=== PATIENT | female | born 1990 | race Caucasian/White ===

== ENCOUNTER 2023-08-21 10:25 | Emergency (ER) | payer BC, SELFPAY ==
[2023-08-21] VITALS (11 sets, daily range): BP systolic 127; BP diastolic 76; PULSE 53–74; TEMP 36.9; O2SAT 100; BMI 21.9
--- NOTE | 2023-08-21 10:59 | ECG_ITS ---
[facility] [place] Test Date: 2023-08-21 Pat Name: SANA THACKER Department: Room: - Gender: Female Rand Tacker: : 1990 Requested By: [id number] Order Number: [id number] Reading MD: KARIN LEMUS Measurements Intervals [place] Rate: 61 P: 71 [place]: 154 QRS: 93 QRSD: 72 T: 45 QT: 394 QTc: 397 Interpretive Statements 1100 Sinus rhythm 7102 Moderate right axis deviation 9110 normal ECG No previous ECG available for comparison Electronically Signed On 08-21-2023 23:20:34 EDT by KARIN LEMUS
--- NOTE | 2023-08-21 10:59 | ED_ITS ---
HPI - Anxiety General Chief Complaint: Anxiety Stated Complaint: ANXIETY Time Seen by Provider: 08/21/23 10:53 Source: patient Mode of arrival: walk-in Limitations: no limitations History of Present Illness HPI narrative: 32-year-old female presented for anxiety. She states she believes she was having a panic attack today. She felt like her heart was racing and she could not concentrate. She worked out for an hour but it did not help and when she went to work she could not concentrate and she started crying. She was brought here. She is not suicidal. She is believes she has had panic attacks in the past but never had them checked out and is not on medication for them. Related Data Previous Rx's ?Medication ?Instructions ?Recorded alprazolam 0.5 mg tablet (Xanax) 0.5 mg PO TID PRN anxiety 5 days 08/21/23 #14 tabs Allergies Allergy/AdvReac Type Severity Reaction Status Date / Time No Known Drug Allergies Allergy Verified 08/21/23 10:35 Review of Systems ROS Narrative A ten point review of systems is negative except as noted above. Exam Narrative Exam Narrative: Nurses note and vital signs reviewed and patient is not hypoxic. General: The patient appears well and in no apparent distress. Patient is resting comfortably on cart. Skin: Warm, dry, no pallor noted. There is no rash noted. Head: Normocephalic, atraumatic Eye: Normal conjunctiva, no drainage Ears, Nose, Mouth, and Throat: oral mucosa is moist. Nares patent. Cardiovascular: Regular Rate and Rhythm Respiratory: Patient is in no distress, no accessory muscle use, lungs are clear to auscultation, no wheezing, rales or rhonchi Back: non-tender GI: Soft and nontender Musculoskeletal: The patient has no evidence of calf tenderness, no pitting edema, symmetrical pulses noted bilaterally Neurological: A&O, normal speech Psychiatric: Cooperative Constitutional Vital Signs, click to edit/add: Last Vital Signs Temp 98.4 F 08/21/23 10:35 Pulse 55 L 08/21/23 12:00 Resp 18 08/21/23 12:00 BP 127/76 08/21/23 10:35 Pulse Ox 100 08/21/23 10:35 O2 Del Method Room Air 08/21/23 10:35 Course Vital Signs Vital signs: Vital Signs Temperature 98.4 F 08/21/23 10:35 Pulse Rate 64 08/21/23 10:35 Respiratory Rate 18 08/21/23 10:35 Blood Pressure 127/76 08/21/23 10:35 Pulse Oximetry 100 08/21/23 10:35 Oxygen Delivery Method Room Air 08/21/23 10:35 Temperature 98.4 F 08/21/23 10:35 Pulse Rate 55 L 08/21/23 12:00 Respiratory Rate 18 08/21/23 12:00 Blood Pressure 127/76 08/21/23 10:35 Pulse Oximetry 100 08/21/23 10:35 Oxygen Delivery Method Room Air 08/21/23 10:35 MDM - Anxiety MDM Narrative Medical decision making narrative: Her medical workup here is negative. She was given 0.5 mg of IV Ativan and feels improved and is able to be discharged home. She was provided a work note and a prescription for short course of Xanax. She was also given a list of PCPs with whom she can follow-up. Treatment diagnosis and follow-up were discussed with the patient and her . Differential Diagnosis Differential diagnosis: Likely panic disorder and acute anxiety Lab Data Attestation: I reviewed the patient's lab results. Labs: Lab Results 08/21/23 Range/Units 11:10 WBC 6.9 (4.0-11.0) 10^3/uL RBC 4.50 (4.20-5.40) 10^6/uL Hgb 12.6 (12.0-16.0) g/dL Hct 39.3 (36.0-48.0) % MCV 87.3 (81.0-99.0) fL MCH 28.0 (26.7-34.0) pg MCHC 32.1 (29.9-35.2) g/dL RDW 12.1 (11.0-15.0) % Plt Count 190 (150-450) 10^3/uL MPV 10.3 (9.5-13.5) fL Neut % (Auto) 68.1 (43.0-75.0) % Lymph % (Auto) 23.9 (20.5-60.0) % [place] % (Auto) 6.2 (1.7-12.0) % Eos % (Auto) 1.3 (0.9-7.0) % Baso % (Auto) 0.4 (0.2-2.0) % Neut # (Auto) 4.7 (1.4-6.5) 10^3/uL Lymph # (Auto) 1.7 (1.2-3.8) 10^3/uL [place] # (Auto) 0.4 (0.3-0.8) 10^3/uL Eos # (Auto) 0.1 (0.0-0.7) 10^3/uL Baso # (Auto) 0.0 (0.0-0.1) 10^3/uL Abs Immat Gran (auto) 0.01 (0.00-0.03) 10^3/uL Imm/Tot Granulo (auto) 0.1 (0.0-0.5) % Sodium 140 (136-145) mmol/L Potassium 4.0 (3.5-5.1) mmol/L Chloride 105 (98-107) mmol/L Carbon Dioxide 26.5 (21.0-32.0) mmol/L Anion Gap 12.5 BUN 16.0 (7.0-18.0) mg/dL Creatinine 0.85 (0.55-1.02) mg/dL Est GFR ( Amer) >60 (>=60) Est GFR (Non-Af Amer) >60 (>=60) BUN/Creatinine Ratio 18.8 Glucose 90 (74-106) mg/dL Calcium 9.2 (8.5-10.1) mg/dL Serum HCG, Qual Negative (NEGATIVE) ECG Data Attestation: I personally reviewed and interpreted this ECG as follows: (EKG on my interpretation shows normal sinus rhythm without acute change and rate of 61.) Discharge Plan Discharge Stand Alone Forms: Portal Instructions Chief Complaint: Anxiety Clinical Impression: Acute anxiety Patient Disposition: Home, Self-Care Time of Disposition Decision: 12:39 Condition: Good Mode of Transportation: Private Vehicle Prescriptions / Home Meds: New alprazolam [Xanax] 0.5 mg tablet 0.5 mg PO TID PRN (Reason: anxiety) 5 Days Qty: 14 0RF Print Language: Ukrainian Instructions: Panic Disorder (ED), Anxiety (ED) Additional Instructions: See attached a list of PCPs Referrals: Physician,Non-Staff, MD [Primary Care Provider] - 1 week
[2023-08-21] MEDS: LORAZEPAM 2 MG/ML VIAL 0.5 MG IV (11:19)
[2023-08-21 11:26] LABS: Basophils Percent Auto 0.4 % (0.2-2.0); Eosinophils Absolute Auto 0.1 10^3/uL (0.0-0.7); Eosinophils Percent Auto 1.3 % (0.9-7.0); Hematocrit 39.3 % (36.0-48.0); Hemoglobin 12.6 g/dL (12.0-16.0); Immature Granulocytes Abs Auto 0.01 10^3/uL (0.00-0.03); Immature Granulocytes Pct Auto 0.1 % (0.0-0.5); Lymphocytes Absolute Auto 1.7 10^3/uL (1.2-3.8); Lymphocytes Percent Auto 23.9 % (20.5-60.0); Mean Corpuscular HGB Conc 32.1 g/dL (29.9-35.2); Mean Corpuscular Volume 87.3 fL (81.0-99.0); Mean Platelet Volume 10.3 fL (9.5-13.5); Monocytes Absolute Auto 0.4 10^3/uL (0.3-0.8); Monocytes Percent Auto 6.2 % (1.7-12.0); Neutrophils Absolute Auto 4.7 10^3/uL (1.4-6.5); Neutrophils Percent Auto 68.1 % (43.0-75.0); Platelet Count 190 10^3/uL (150-450); Red Cell Distribution Width 12.1 % (11.0-15.0); White Blood Count 6.9 10^3/uL (4.0-11.0)
[2023-08-21 11:38] LABS: HCG Qualitative NEGATIVE (NEGATIVE)
[2023-08-21 11:50] LABS: Anion Gap 12.5; BUN Creatinine Ratio 18.8; Calcium 9.2 mg/dL (8.5-10.1); Carbon Dioxide 26.5 mmol/L (21.0-32.0); Chloride 105 mmol/L (98-107); Estimated GFR (African America >60 (>=60); Estimated GFR (Non-African Ame >60 (>=60); Glucose 90 mg/dL (74-106); Sodium 140 mmol/L (136-145)
== END 2023-08-21 12:58 | disposition home or self-care (01) ==
PROVIDERS: Emergency Provider Emergency Medicine
DX: F41.9 Anxiety disorder, unspecified (principal)
CPT/HCPCS: 36415; 80048; 84703; 85025; 93005; 96374; 99284